=== PATIENT | female | born 1985 | race Two or more races ===

== ENCOUNTER 2017-06-20 21:49 | Emergency (ER) | payer SELFPAY ==
[~2017-06-20] VITALS: Ht 154.9 cm; Wt 43.1 kg
[2017-06-20] MEDS ORDERED: diphenhydrAMINE 50 MG/1 ML VIAL IM ONE (22:00)
[2017-06-20] MEDS ORDERED: LORAZEPAM 2 MG/1 ML VIAL IM ONE (22:00)
[2017-06-20] MEDS ORDERED: LORAZEPAM 2 MG/1 ML VIAL ONE (22:09)
[2017-06-20] MEDS ORDERED: diphenhydrAMINE 50 MG/1 ML VIAL ONE (22:13)
[2017-06-20 22:15] LABS: BASOPHILS # (AUTO) 0.1 K/uL (0.0-8.0); EOSINOPHILS # (AUTO) 0.1 K/uL (0.0-0.7); HEMATOCRIT 41.7 % (37-47); HEMOGLOBIN 13.7 G/DL (12.0-16.0); LYMPHOCYTES # (AUTO) 2.2 K/UL (0.8-4.8); MEAN CORPUSCULAR HEMOGLOBIN 31.3 UUG (27.0-31.0); MEAN CORPUSCULAR HGB CONC 33 g/dL (32.0-37.0); MEAN CORPUSCULAR VOLUME 95.4 FL (81.0-99.0); MONOCYTES # (AUTO) 0.4 K/UL (0.1-1.30); MONOCYTES % (AUTO) 4.5 % (0.0-11.0); NEUTROPHILS # (AUTO) 5.2 K/UL (1.8-8.9); NEUTROPHILS % (AUTO) 66.5 % (38.5-71.5); PLATELET COUNT (AUTO) 515 K/UL (150-450); RED BLOOD CELL COUNT(AUTO) 4.37 MIL/UL (4.2-5.4)
[2017-06-20] MEDS ORDERED: QUET100T PO (22:20)
[2017-06-20] MEDS ORDERED: LAMO200T2 PO (22:20)
[2017-06-20] MEDS ORDERED: ESLI600T PO (22:20)
[2017-06-20 22:24] LABS: CARBON DIOXIDE 24 mmol/L (21-32); CHLORIDE 105 mmol/L (98-107); GLUCOSE 119 mg/dL (74-106); POTASSIUM 5.1 mmol/L (3.5-5.1); UREA NITROGEN, BLOOD 16 mg/dL (7-18)
[2017-06-20 22:31] LABS: ETHANOL 104 MG/DL (0-0)
[2017-06-20 22:38] LABS: ALANINE AMINOTRANSFERASE 32 U/L (14-59); ALKALINE PHOSPHATASE 68 U/L (50-136); ASPARTATE AMINOTRANSFERASE 24 U/L (15-37); BILIRUBIN,DIRECT 0.1 mg/dL (0.0-0.2); BILIRUBIN,TOTAL 0.2 mg/dL (0.2-1.0); TOTAL PROTEIN, SERUM 8.3 g/dL (6.4-8.2)
[2017-06-20 22:40] LABS: ACETAMINOPHEN < 2.0 ug/mL (10-30)
--- NOTE | 2017-06-20 23:55 | NUR ---
Patient discharged to home in stable conditon. Written and verbal after care instructions given. Patient verbalizes understanding of instructions.
== END 2017-06-20 23:56 | disposition home or self-care (01) ==
LOC: ER 21:49
DX: F41.0 Panic disorder [episodic paroxysmal anxiety] (principal)
CPT/HCPCS: 36415; 80048; 80076; 84703; 85025; 96372 ×2; 99284; A4663; G0480 ×2; G0481; J1200; J2060